=== PATIENT | female | born 1975 | race Caucasian/White ===

== ENCOUNTER 2016-12-25 14:55 | Emergency (ER) | payer BC, OTHER ==
[2016-12-25 15:12] VITALS: TEMP 99.1; O2SAT 97
[2016-12-25] MEDS ORDERED: IBUPROFEN 600 MG TAB PO ONE (15:14)
[2016-12-25] MEDS ORDERED: RABIES VACC, HUMAN DIPLOID/PF 2.5 UNIT VIAL (RABAVERT) IM ONE (16:19)
[2016-12-25] MEDS ORDERED: LET GEL TOPICAL 1 EA SYR TP ONE ×2 (16:19→16:20)
--- NOTE | 2016-12-25 16:23 | EDPHY ---
H & P Time Seen by Provider: 12/25/16 16:11 HPI/ROS: CHIEF COMPLAINT: Possible bat bite left hand HISTORY OF PRESENT ILLNESS: 41-year-old immunocompetent female with up-to-date tetanus states that 4 days ago she was rock climbing in [place], was climbing in a crack during daylight hours, felt something described as fuzzy in the crack that then bit her, did not fly away, concerned was a bat. She is concerned about post exposure prophylaxis. She lives in [place]. Denies paresthesia. PHYSICAL EXAM (Prior to examination, patient consented to physical exam, hands were washed and my usual and customary physical exam procedures followed) 1) GENERAL: Well-developed, well-nourished, alert and oriented. Appears to be in no acute distress. 2) HEAD: Normocephalic 3) HEENT: sclera anicteric 4) LUNGS: Breathing comfortably. 5) SKIN: left hand dorsal aspect puncture wound and abrasion x3 with no signs of infection. Not through. Negative kanavel to the fingers. No lymphangitic streaking. Smoking Status: Never smoked Constitutional: Initial Vital Signs Temperature (C) 37.3 C 12/25/16 15:09 Heart Rate 67 12/25/16 15:09 Respiratory Rate 16 12/25/16 15:09 Blood Pressure 107/74 12/25/16 15:09 O2 Sat (%) 97 12/25/16 15:09 O2 Delivery Mode Room Air Allergies/Adverse Reactions: penicillin G Allergy (Verified 12/25/16 15:07) Home Medications: Medication Instructions Recorded Ortho Tri-Cyclen Lo Tablet 12/25/16 MDM/Departure - MDM Medications Given: Discontinued Medications Ibuprofen (Motrin) 600 mg PO EDNOW ONE Stop: 12/25/16 15:15 Last Admin: 12/25/16 15:21 Dose: 600 mg Rabies Immune Globulin (Hyperrab S-D Vial 10ml) 1,360 unit IM .ONCE ONE Stop: 12/25/16 17:01 Last Admin: 12/25/16 17:12 Dose: 1,360 unit Rabies Vaccine Human Diploid Cell (Rabavert) 2.5 unit IM .ONCE ONE Stop: 12/25/16 16:20 Last Admin: 12/25/16 16:55 Dose: 2.5 unit Tetracaine/Epinephrine/Lidocaine (Let Gel Topical) 1 ea TP EDNOW ONE Stop: 12/25/16 16:20 Last Admin: 12/25/16 16:27 Dose: 1 ea ED Course/Re-evaluation: High clinical suspicion for bat bite to left hand. Patient started on post exposure prophylaxis, will get further rabies vaccine at the [facility], spoke with infectious disease Dr Schrader at 1650 hrs who agreed to see patient in clinic for follow-up. Patient was given 4 doses schedule written on her aftercare instructions. No signs of infection of the hand at this time.Care of patient under supervision of secondary supervising physician Dr Michele - Depart Disposition: Home, Routine, Self-Care Clinical Impression: Animal bite Condition: Good Instructions: Animal Bite (ED) Additional Instructions: You will need further rabies vaccine, schedule below: Days 0: December 25, you received immunoglobulin and vaccine Day 3: December 28 go to the [facility] for the next shot Day 7: January 01 Day 14: January 08 Referrals: [facility] (ED,. [Edm Groups for Call Sched] - 12/28/16
[2016-12-25] MEDS ORDERED: RABIES IMMUNE GLOBULIN 300 UNIT/2 ML VIAL IM ONE (16:32)
[2016-12-25] MEDS ORDERED: RABIES IMMUNE GLOBULIN 150 UNIT/ML 10 ML VIAL IM ONE (17:00)
[2016-12-25 17:21] VITALS: BP 111/76; PULSE 69; RESP 18
== END 2016-12-25 17:43 | disposition home or self-care (01) ==
DX: S61.452A Open bite of left hand, initial encounter (principal); Z23 Encounter for immunization; W55.81XA Bitten by other mammals, initial encounter; Y99.8 Other external cause status; Y93.39 Activity, other involving climbing, rappelling and jumping off

== ENCOUNTER → 2017-08-21 | Outpatient (CLI) | payer BC, MEDICAID | LOC: BMCIMAGING 13:54 | PROVIDERS: ATTEND Obstetrics & Gynecology | DX: N83.202 Unspecified ovarian cyst, left side (principal); N83.01 Follicular cyst of right ovary ==

== ENCOUNTER → 2017-08-23 | Outpatient (CLI) | payer MEDICAID ==
[~2017-08-23] MED LIST: IOPAMIDOL (ISOVUE-300) 100 ML BTL ONE
== END ==
LOC: FIMAGING 10:08
PROVIDERS: ATTEND Physician Assistant
DX: N83.202 Unspecified ovarian cyst, left side (principal); I70.0 Atherosclerosis of aorta
CPT/HCPCS: Q9967

== ENCOUNTER 2017-08-25 11:35 | Emergency (ER) | payer MEDICAID ==
--- NOTE | 2017-08-25 12:36 | EDPHY ---
H & P Stated Complaint: LLQ pain x 10 days; sent here by PCP; had CT this morning Time Seen by Provider: 08/25/17 12:36 HPI/ROS: HPI: This is a 42-year-old female who presents with Chief Complaint: LLQ pain x 10 days; sent here by PCP; had CT this morning Location: Left lower quadrant Quality: Pain Duration: 10 days Signs and Symptoms: no fever, no nausea, no vomiting, no hematemesis, no blood in stool, no abdominal bloating, no diarrhea, no back pain, no urinary symptoms , no vaginal bleeding/discharge, no indigestion, no chest pain, no shortness of breath Timing: Intermittent Severity: [id number] Context: Patient presents with left lower quadrant pain for the last 10 days; worsened with abdominal flexion and touching the area. She reports that 2 weeks ago she went back packing and carried 50 lb backpack. She used lap belt as well as shoulder straps. She hiked for approximately 4 days. She was seen by her primary care provider on 08/21/17 and had a pelvic ultrasound that showed 2.1 cm hemorrhagic follicular cyst right ovary and 2.0 cm partially septated complex cyst left ovary. No evidence of torsion or free fluid. Patient had a CT abdomen and pelvis scan today that showed left ovarian cyst measuring 1.7 cm dermoid with fat density, no significant fluid in the pelvis, no bowel obstruction, diverticulitis, or colitis. Mild atherosclerotic calcification of the aorta but no aortic aneurysm. Due to patient's continued left lower quadrant pain primary care provider Radha Funk, PACs sent patient to the emergency room for further evaluation. Patient denies any urinary symptoms/ fever/back pain/diarrhea/nausea/vomiting. Patient reports that she was checked last year for cancer marker and was within normal limits. Her primary care provider is scheduled to draw it again next week as well as take her stool studies. Patient is extremely concerned as there is 3 members in her family who have had cancer. She believes that the abdominal bloating is related to some type of cancer in her abdomen/ovary. Modifying Factors: None Comment: ROS: see HPI Constitutional: No fever, no chills, no weight loss Eyes: No blurred vision Respiratory: No shortness of breath, no cough Cardiovascular: No chest pain, no palpitations Gastrointestinal: No nausea, no vomiting, no diarrhea, no hematemesis, no blood in stool Genitourinary: No dysuria, no blood in urine Extremities: No myalgias, no edema Neurologic: No weakness, no numbness Skin: No rashes, no petechiae Hematologic: No bruising, no bleeding MEDICAL/SURGICAL/SOCIAL HISTORY: Medical history: Ovarian cyst Surgical history: Denies Social history: Family history noncontributory. CONSTITUTIONAL: Extremely polite well-appearing middle-aged white female, awake and alert, no obvious distress HEENT: Atraumatic and normocephalic, PERRL, EOMI. Nares patent; no rhinorrhea; no nasal mucosal edema. Tympanic membranes clear. Oropharynx clear, no exudate and moist pink mucosa. Airway patent. No lymphadenopathy. No meningismus. Cardiovascular: Normal S1/S2, regular rate, regular rhythm, without murmur rub or gallop. PULMONARY/CHEST: Symmetrical and nontender. Clear to auscultation bilaterally. Good air movement. No accessory muscle usage. ABDOMEN: Soft, nondistended, mild reproducible tenderness on the left lower quadrant abdominal wall with a diastasis recti muscle attached as to the oblique muscles. no rebound, no guarding, no peritoneal signs, no masses or organomegaly. No CVAT. Bowel sounds heard x4 quadrants. EXTREMITIES: 2/2 pulses, strength 5/5, no deformities, no clubbing, no cyanosis or edema. NEUROLOGICAL: no focal neuro deficits. GCS 15. SKIN: Warm and dry, no erythema. no rash. Good capillary refill. Source: Patient Exam Limitations: No limitations - Personal History LMP (Females 10-55): 15-21 Days Ago Current Tetanus Diphtheria and Acellular Pertussis (TDAP): Yes Tetanus Vaccine Date: 11/2015 - Medical/Surgical History Hx Asthma: No Hx Chronic Respiratory Disease: No Hx Diabetes: No Hx Cardiac Disease: No Hx Renal Disease: No Hx Cirrhosis: No Hx Alcoholism: No Hx HIV/AIDS: No Hx Splenectomy or Spleen Trauma: No Other PMH: ovarian cysts - Social History Smoking Status: Never smoked Constitutional: Initial Vital Signs Temperature (C) 36.7 C 08/25/17 11:40 Heart Rate 87 08/25/17 11:40 Respiratory Rate 18 08/25/17 11:40 Blood Pressure 115/81 H 08/25/17 11:40 O2 Sat (%) 98 08/25/17 11:40 O2 Delivery Mode Room Air Allergies/Adverse Reactions: penicillin G Allergy (Mild, Verified 08/25/17 11:51) rash as child Home Medications: Medication Instructions Recorded Cyclobenzaprine [Flexeril 10 MG 10 mg PO Q8 PRN #12 tab 08/25/17 (*)] Medical Decision Making ED Course/Re-evaluation: Laboratory studies and urinalysis ordered per patient request as these have not been performed per primary care provider I suspect this is directly related to musculoskeletal strain of the abdominal wall due to reproduction of tenderness and unremarkable pelvic ultrasound and CT abdomen and pelvis scan. no signs for abdominal wall hernia incarceration. Vital signs reviewed and stable. Labs reviewed. No signs of leukocytosis/anemia/platelet dysfunction/KATERINA/ elevated LFTs/electrolyte imbalance/pancreatitis. Urinalysis negative. Advised supportive care. Given prescription for Flexeril with primary care provider follow-up. This patient was seen under the supervision of my secondary supervising physician. I evaluated care for this patient independently. Discussed this patient with Dr. Moreno who did not see the patient. Differential Diagnosis: Abdominal pain including but not limited to appendicitis, cholecystitis, gastritis and urinary tract infection. Abdominal pain in a female including but not limited to ovarian cyst, pelvic inflammatory disease, ovarian torsion, urinary tract infection, and appendicitis. - Data Points Laboratory Results: Laboratory Results 08/25/17 12:50 08/25/17 12:50 08/25/17 08/25/17 08/25/17 13:18 12:50 12:50 WBC RBC Hgb Hct MCV MCH MCHC RDW Plt Count MPV Neut % (Auto) Lymph % (Auto) [place] % (Auto) Eos % (Auto) Baso % (Auto) Nucleat RBC Rel Count Absolute Neuts (auto) Absolute Lymphs (auto) Absolute Monos (auto) Absolute Eos (auto) Absolute Basos (auto) Absolute Nucleated RBC Immature Gran % Immature Gran # Sodium 139 mEq/L mEq/L (135-145) Potassium 4.1 mEq/L mEq/L (3.3-5.0) Chloride 102 mEq/L mEq/L (97-110) Carbon Dioxide 26 mEq/l mEq/l (22-31) Anion Gap 11 mEq/L mEq/L (8-16) BUN 12 mg/dL mg/dL (7-23) Creatinine 0.8 mg/dL mg/dL (0.6-1.0) Estimated GFR > 60 Glucose 79 mg/dL mg/dL (70-100) Calcium 9.2 mg/dL mg/dL (8.5-10.4) Total Bilirubin 0.9 mg/dL mg/dL (0.1-1.4) Conjugated Bilirubin 0.4 mg/dL mg/dL (0.0-0.5) Unconjugated Bilirubin 0.5 mg/dL mg/dL (0.0-1.1) AST 16 IU/L IU/L (14-46) ALT 29 IU/L IU/L (9-52) Alkaline Phosphatase 45 IU/L IU/L (38-126) Total Protein 7.0 g/dL g/dL (6.3-8.2) Albumin 4.2 g/dL g/dL (3.5-5.0) Lipase 47 IU/L IU/L (23-300) Beta HCG, Qual NEGATIVE Urine Color COLORLESS Urine Appearance CLEAR Urine pH 6.0 (5.0-7.5) Ur Specific [place] 1.002 (1.002-1.030) Urine Protein NEGATIVE (NEGATIVE) Urine Ketones NEGATIVE (NEGATIVE) Urine Blood NEGATIVE (NEGATIVE) Urine Nitrate NEGATIVE (NEGATIVE) Urine Bilirubin NEGATIVE (NEGATIVE) Urine Urobilinogen NEGATIVE EU EU (0.2-1.0) Ur Leukocyte Esterase NEGATIVE (NEGATIVE) Urine Glucose NEGATIVE (NEGATIVE) 08/25/17 12:50 WBC 4.60 10^3/uL 10^3/uL (3.80-9.50) RBC 4.63 10^6/uL 10^6/uL (4.18-5.33) Hgb 14.9 g/dL g/dL (12.6-16.3) Hct 42.7 % % (38.0-47.0) MCV 92.2 fL fL (81.5-99.8) MCH 32.2 pg pg (27.9-34.1) MCHC 34.9 g/dL g/dL (32.4-36.7) RDW 11.8 % % (11.5-15.2) Plt Count 196 10^3/uL 10^3/uL (150-400) MPV 10.6 fL fL (8.7-11.7) Neut % (Auto) 59.8 % % (39.3-74.2) Lymph % (Auto) 31.1 % % (15.0-45.0) [place] % (Auto) 7.6 % % (4.5-13.0) Eos % (Auto) 0.9 % % (0.6-7.6) Baso % (Auto) 0.4 % % (0.3-1.7) Nucleat RBC Rel Count 0.0 % % (0.0-0.2) Absolute Neuts (auto) 2.75 10^3/uL 10^3/uL (1.70-6.50) Absolute Lymphs (auto) 1.43 10^3/uL 10^3/uL (1.00-3.00) Absolute Monos (auto) 0.35 10^3/uL 10^3/uL (0.30-0.80) Absolute Eos (auto) 0.04 10^3/uL 10^3/uL (0.03-0.40) Absolute Basos (auto) 0.02 10^3/uL 10^3/uL (0.02-0.10) Absolute Nucleated RBC 0.00 10^3/uL 10^3/uL (0-0.01) Immature Gran % 0.2 % % (0.0-1.1) Immature Gran # 0.01 10^3/uL 10^3/uL (0.00-0.10) Sodium Potassium Chloride Carbon Dioxide Anion Gap BUN Creatinine Estimated GFR Glucose Calcium Total Bilirubin Conjugated Bilirubin Unconjugated Bilirubin AST ALT Alkaline Phosphatase Total Protein Albumin Lipase Beta HCG, Qual Urine Color Urine Appearance Urine pH Ur Specific [place] Urine Protein Urine Ketones Urine Blood Urine Nitrate Urine Bilirubin Urine Urobilinogen Ur Leukocyte Esterase Urine Glucose Departure - Departure Disposition: Home, Routine, Self-Care Clinical Impression: Abdominal muscle strain Qualifiers: Encounter type: initial encounter Qualified Code(s): S39.011A - Strain of muscle, fascia and tendon of abdomen, initial encounter Condition: Good Instructions: Muscle Strain (ED) Additional Instructions: Laboratory studies and urinalysis are completely normal today. Take Tylenol 650 mg every 4 hours and/or Ibuprofen 600 mg every 8 hours with food as needed for pain. Use Flexeril every 8 hours as needed for muscle spasm. Avoid any core strengthening exercises or abdominal wall exercises until pain completely resolved. Follow-up with your primary care provider for stool studies as well as CA 125 surveillance testing. Referrals: Radha Funk PA [Primary Care Provider] - As per Instructions Prescriptions: Cyclobenzaprine [Flexeril 10 MG (*)] 10 mg PO Q8 PRN #12 tab PRN Reason: Spasms
[2017-08-25 13:25] LABS: PLATELET COUNT 196 10^3/uL (150-400)
[2017-08-25 14:09] VITALS: BP 104/65
== END 2017-08-25 14:07 | disposition home or self-care (01) ==
DX: S39.011A Strain of muscle, fascia and tendon of abdomen, initial encounter (principal); X58.XXXA Exposure to other specified factors, initial encounter; Y99.8 Other external cause status; Y93.01 Activity, walking, marching and hiking

== ENCOUNTER → 2018-08-06 | Outpatient (CLI) | payer OTHER | LOC: FIMAGING 12:49 | PROVIDERS: ATTEND Physician Assistant | DX: R06.02 Shortness of breath (principal); J45.909 Unspecified asthma, uncomplicated; Z77.120 Contact with and (suspected) exposure to mold (toxic) ==